=== PATIENT | male | born 1970 | race Caucasian/White ===

== ENCOUNTER 2017-01-16 12:46 | Emergency (ER) | payer OTHER ==
[2017-01-16] MEDS ORDERED: KETOROLAC 30 MG/ML VIAL IM ONE (13:16)
[2017-01-16] MEDS ORDERED: 0.9 % SODIUM CHLORIDE 1,000 ML BAG IV ONE (13:19)
[2017-01-16] MEDS ORDERED: KETOROLAC 30 MG/ML VIAL IVP ONE (13:20)
--- NOTE | 2017-01-16 13:22 | Emergency Department Record ---
History of Present Illness - General Chief Complaint: Headache Migraine Stated Complaint: SENT BY HIS DR/ PAIN AND PRESSURE IN HEAD. Time Seen by Provider: 01/16/17 13:07 Source: Patient, Family Mode of Arrival: Ambulatory Limitations: No limitations - History of Present Illness Initial Comments: The patient is here due to a L sided GALO since 1am today. The patient states he was in bed when he developed the acute onset of L sided pain behind his L eye. After the onset it did gradually worsen. He denies any visual changes, vomiting , neck pain or balance issues but did have some nausea when he was at his PCP's office. 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 Presently the GAOL is moderate and the patient states he did have a similar GALO last week that lasted 3 hours. There has been no reported fever, chills, cough, nasal congestion or vomiting. MD Complaint: Headache Onset/Timin -: Days(s) Onset Description: Gradual Location: Left Severity: Moderate Severity scale (1-10): 5 Quality: Aching Consistency: Constant Improves With: Nothing Worsens With: None Treatments Prior to Arrival: Antiemetic Treatment Prior to Arrival Comment:: phenergan at dr office - Related Data Home Medications Medication Instructions Recorded Confirmed Last Taken Sulfasalazine [Azulfidine] 500 mg PO TID 01/16/17 01/16/17 Unknown Tadalafil [Cialis] 20 mg PO ASDIR 01/16/17 01/16/17 Unknown Allergies Allergy/AdvReac Type Severity Reaction Status Date / Time No Known Drug Allergies Allergy Verified 01/16/17 13:03 Travel Screening - Travel/Exposure Within Last 30 Days Have you traveled within the last 30 days?: Yes Location Detail:: [place] - Travel/Exposure Within Last Year Have you traveled outside the [place] in the last year?: Yes [facility] Travel Symptoms Symptom Screening: Headache Review of Systems Constitutional: Denies: Chills, Fever, Malaise Eyes: Denies: Eye discharge ENT: Denies: Congestion Respiratory: Denies: Cough, Dyspnea Cardiovascular: Denies: Arrhythmia, Chest pain Past Medical History - SOCIAL HISTORY Smoking Status: Never smoker Alcohol Use: Occassional Drug Use: None - RESPIRATORY Hx Respiratory Disorders: No - CARDIOVASCULAR Hx Cardio Disorders: Yes Hx Abnormal EKG: Yes - NEURO Hx Neuro Disorders: No - GI Hx GI Disorders: No - Hx Genitourinary Disorders: No - ENDOCRINE Hx Endocrine Disorders: No - MUSCULOSKELETAL Hx Musculoskeletal Disorders: Yes Hx Arthritis: Yes - PSYCH Hx Psych Problems: No - HEMATOLOGY/ONCOLOGY Hx Hematology/Oncology Disorders: No Family Medical History Any Significant Family History?: No Physical Exam - General General Appearance: Alert, Oriented x3, Cooperative, No acute distress - Head Head exam: Atraumatic, Normocephalic, Normal inspection Head exam detail: Tenderness of temporal artery (on the L.) - Eye Eye exam: Normal appearance, PERRL, EOMI, Other (Neg Papilledema bilaterally.) - ENT ENT exam: Normal exam, Mucous membranes moist, Normal external ear exam, Normal orophraynx, TM's normal bilaterally Throat exam: Normal inspection. negative: Tonsillar erythema, Tonsillar exudate - Neck Neck exam: Normal inspection, Full ROM. negative: Lymphadenopathy, Meningismus (The neck is very supple.), Tenderness - Respiratory Respiratory exam: Normal lung sounds bilaterally. negative: Respiratory distress - Cardiovascular Cardiovascular Exam: Regular rate, Normal rhythm, Normal heart sounds - GI/Abdominal GI/Abdominal exam: Soft, Normal bowel sounds. negative: Tenderness - Extremities Extremities exam: Normal inspection, Full ROM, Normal capillary refill. negative: Tenderness - Neurological Neurological exam: Alert, Normal gait, Oriented X3. negative: Abnormal gait, Altered, Motor sensory deficit - Psychiatric Psychiatric exam: negative: Anxious, Depressed, Flat affect Course Vital Signs 01/16/17 12:54 Temperature 97.7 F Pulse Rate 59 L Respiratory 18 Rate Blood Pressure 104/61 Pulse Ox 97 - Reevaluation(s) Reevaluation #1: I did discuss the case with Dr. Muñoz who is the Neurosurgeon salesperson fashion accessories at [facility]. Due to the description of the cyst he would like the patient transferred to the ER at [facility] for an emergent MRI and neurosurgical consultation. The patient does agree to the plan. I then did discuss the case with Dr. Baez in the ER and she does accept the patient in an ER to ER transfer. 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 Forms: Patient Portal Access Time of Disposition: 15:01
[2017-01-16 13:30] LABS: EOS % 0.5 % (0-6); GRAN % 73.3 % (47-80); HEMATOCRIT 44.4 % (42.0-52.0); HEMOGLOBIN 14.9 gm/dl (14.0-18.0); LYMPH % 16.7 % (16-45); MEAN CELL VOLUME 95.9 fl (81-97); MEAN CORPUSCULAR HEMOGLOBIN 32.2 pg (27-33); MEAN CORPUSCULAR HGB CONC 33.6 g/dl (32-36); MEAN PLATELET VOLUME 9.2 fl (7.4-10.4); MONO % 9.5 % (0-9); PLATELET COUNT 265 K/uL (130-400); RED BLOOD COUNT 4.63 M/uL (4.40-5.70); RED CELL DISTRIBUTION WIDTH 13.3 % (11.5-14.5); WHITE BLOOD COUNT W/O DIFF 6.5 K/uL (4.2-12.2)
[2017-01-16 13:48] LABS: ALB/GLOB RATIO 1.7 (1.1-1.8); ALBUMIN 4.8 gm/dL (3.5-5.0); ALKALINE PHOSPHATASE 54 U/L (38-126); ALT/SGPT 40 U/L (21-72); ANION GAP 10.2 (7-16); AST/SGOT 28 U/L (17-59); BLOOD UREA NITROGEN 13 mg/dL (9-20); CARBON DIOXIDE 24.8 mmol/L (22-30); CREATININE 0.9 mg/dL (0.66-1.25); EST GLOMERULAR FILTRATION RATE > 60 ml/min; GLUCOSE,RANDOM 101 mg/dL (70-110); TOTAL PROTEIN 7.7 gm/dL (6.3-8.2)
[2017-01-16 13:51] LABS: C-REACTIVE PROTEIN < 0.5 mg/dL (0.0-0.9)
[2017-01-16 14:09] LABS: ERYTHROCYTE SEDIMENTATION RATE 2 mm/hr (0-15)
== END 2017-01-16 15:24 | disposition short-term general hospital (02) ==
LOC: ER 12:46
DX: R51 Headache (principal); R11.0 Nausea; H57.12 Ocular pain, left eye
CPT/HCPCS: 99285 ×2; 96374; 85025; 85651; 86140; 80053; 70450; J1885; J7030

== ENCOUNTER 2019-06-18 17:42 | Emergency (ER) | payer OTHER ==
[2019-06-18] MEDS ORDERED: 0.9 % SODIUM CHLORIDE 1,000 ML BAG IV ONE (18:07)
[2019-06-18] MEDS ORDERED: ACETAMINOPHEN 1,000 MG/100 ML BTL IVPB ONE (18:08)
--- NOTE | 2019-06-18 18:13 | Emergency Department Record ---
History of Present Illness - General Chief Complaint: Abdominal Pain Stated Complaint: ABD PAIN/FEVER Time Seen by Provider: 06/18/19 18:01 Source: Patient Mode of Arrival: Ambulatory Limitations: No limitations - History of Present Illness Initial Comments: The patient is here due to RUQ pain for one day. The pain is fairly constant and nonradiating and associated with nausea but no vomiting. The patient states food does not affect the pain. There has been no diarrhea, fever, chills, or vomiting. The patient has not had any abdominal surgeries. MD Complaint: Abdominal pain Onset/Timin -: Days(s) Location: RUQ Radiation: None Migration to: No migration Severity: Moderate Severity scale (1-10): 8 Quality: Sharp Consistency: Constant Improves With: Nothing Worsens With: Nothing Associated Symptoms: Nausea - Related Data Home Medications Medication Instructions Recorded Confirmed Last Taken Sertraline HCl [Zoloft] 50 mg PO DAILY 06/18/19 06/18/19 Unknown Allergies Allergy/AdvReac Type Severity Reaction Status Date / Time No Known Drug Allergies Allergy Verified 06/18/19 17:52 Travel Screening - Travel/Exposure Within Last 30 Days Have you traveled within the last 30 days?: No Review of Systems Constitutional: Denies: Chills, Fever Eyes: Denies: Eye discharge ENT: Denies: Congestion Respiratory: Denies: Cough Cardiovascular: Denies: Arrhythmia, Chest pain Endocrine: Reports: Fatigue Gastrointestinal: Reports: Abdominal pain, Nausea. Denies: Diarrhea Genitourinary: Denies: Dysuria Musculoskeletal: Denies: Arthralgia Skin: Denies: Bruising Past Medical History - SOCIAL HISTORY Smoking Status: Never smoker Alcohol Use: None Drug Use: None - RESPIRATORY Hx Respiratory Disorders: No - CARDIOVASCULAR Hx Cardio Disorders: Yes Hx Abnormal EKG: Yes - NEURO Hx Neuro Disorders: No - GI Hx GI Disorders: No - Hx Genitourinary Disorders: No - ENDOCRINE Hx Endocrine Disorders: No - MUSCULOSKELETAL Hx Musculoskeletal Disorders: Yes Hx Arthritis: Yes - PSYCH Hx Psych Problems: Yes Hx Depression: Yes - HEMATOLOGY/ONCOLOGY Hx Hematology/Oncology Disorders: No Family Medical History Any Significant Family History?: No Physical Exam - General General Appearance: Alert, Oriented x3, Cooperative, No acute distress - Head Head exam: Atraumatic, Normocephalic - Eye Eye exam: Normal appearance - Neck Neck exam: Normal inspection, Full ROM. negative: Tenderness - Respiratory Respiratory exam: Normal lung sounds bilaterally. negative: Respiratory distress - Cardiovascular Cardiovascular Exam: Regular rate, Normal rhythm, Normal heart sounds - GI/Abdominal GI/Abdominal exam: Soft, Normal bowel sounds, Tenderness (There is significant tenderness to palpation over the right mid abdomen.). negative: Guarding, Pulsatile mass, Rebound, Rigid - Extremities Extremities exam: Normal inspection, Full ROM, Normal capillary refill. negative: Tenderness - Back Back exam: Reports: Normal inspection - Neurological Neurological exam: Alert, Normal gait. negative: Abnormal gait, Motor sensory deficit - Psychiatric Psychiatric exam: negative: Anxious Course Vital Signs 06/18/19 17:49 Temperature 99.2 F Pulse Rate 97 H Respiratory 18 Rate Blood Pressure 132/71 Pulse Ox 97 - Reevaluation(s) Reevaluation #1: The patient's CT clearly demonstrates acute appendicitis with no perforation or abscess. I did discuss the issues with the patient and he stated he would like to be transferred to [facility]. I then did discuss the case with Dr. Parsons(gen surg) at [facility] who did accept the patient and would like him to go to the ER. I then did discuss the case with Dr. Mccray in the ER who did accept the patient in transfer to the ER. 06/18/19 19:01 Medical Decision Making - Data Complexity MDM Data: Labs Ordered and/or Reviewed, X-Ray Ordered and/or Reviewed - Lab Data Result diagrams: 06/18/19 18:10 06/18/19 18:10 - Radiology Data Radiology results: Report reviewed (CT: Acute appencitis with no perforation or abscess.) Disposition Disposition: Transfer Clinical Impression: Acute appendicitis Qualifiers: Acute appendicitis type: unspecified acute appendicitis type Qualified Code(s): K35.80 - Unspecified acute appendicitis Disposition: Acute Care Hospital Transfer Transfer To: [facility] Reason For Transfer: Gen Surg. Accepting Physician: Issa Time Discussed w/Accepting Physician: 19:04 Condition: (2) Stable Instructions: Abdominal Pain (ED) Additional Instructions: Please proceed directly to the ER at [facility] for admission. Forms: Patient Portal Access Time of Disposition: 19:04 Quality - Quality Measures Quality Measures: N/A - Blood Pressure Screening View Details: Yes Does Patient Have Any of the Following: No Blood Pressure Classification: Pre-Hypertensive BP Reading Systolic Measurement: 132 Diastolic Measurement: 71 Screening for High Blood Pressure: < Pre-Hypertensive BP, F/U Documented > [G8950] Pre-Hypertensive Follow-up Interventions: Referral to alternative/primary care provider.
[2019-06-18 18:33] LABS: BLOOD UREA NITROGEN 11 mg/dL (6-20); CREATININE 0.9 mg/dL (0.7-1.2); EST GLOMERULAR FILTRATION RATE > 60 mL/min
[2019-06-18 18:34] LABS: LIPASE 31 U/L (13-60); TOTAL PROTEIN 7.4 g/dL (6.6-8.7)
[2019-06-18 18:36] LABS: GLUCOSE,RANDOM 110 mg/dL (74-109)
[2019-06-18 18:38] LABS: ALBUMIN 4.5 g/dL (4.0-5.0); ALT/SGPT 29 U/L (<41); AST/SGOT 18 U/L (10.0-50.0)
[2019-06-18 18:39] LABS: ALKALINE PHOSPHATASE 58 U/L (40-129); BILIRUBIN,DIRECT < 0.2 mg/dL (0-0.3)
[2019-06-18] MEDS ORDERED: ERTAPENEM SODIUM 1 G in 0.9 % SODIUM CHLORIDE 100ML 100 ML IVPB ONE (18:48)
--- NOTE | 2019-06-20 21:38 | CT SCAN REPORT ---
EXAM: CT SCAN ABDOMEN/PELVIS WO CONTRAST HISTORY: RIGHT LOWER QUADRANT ABDOMEN PAIN. COMPARISON: None. TECHNIQUE: Without administration of intravenous contrast, contiguous CT sections were obtained through the abdomen and pelvis in the axial plane. Coronal and sagittal reformats. FINDINGS: Curvilinear opacities are noted about the lung bases bilaterally, likely areas of scarring or atelectasis. No free air evident within the abdomen or pelvis. Noncontrast technique limits evaluation of the solid organs. Chronic- appearing changes suggested at the spleen with capsular calcifications and a few splenules adjacent to the spleen. 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 No renal, ureteral, or bladder stones evident. No hydronephrosis. Visualized portions of the solid organs otherwise appear unremarkable as seen. The gallbladder is present. No pericholecystic fluid. No abdominal aortic aneurysm. Evaluation of the vasculature otherwise limited. The appendix is abnormal measuring up to 12 mm. It is surrounded by inflammatory change. No discrete organized fluid collection to suggest abscess at this time. GI tract is otherwise nondilated. No mesenteric adenopathy evident. Abdominal wall is grossly intact. Old rib fractures of the posterior left rib cage noted. There is mild spurring of the spine. IMPRESSION: 1. ACUTE APPENDICITIS. SURGICAL CONSULTATION RECOMMENDED. 2. ADDITIONAL CHRONIC-APPEARING FINDINGS, DISCUSSED ABOVE. The ER physician was notified by voice clip. JOB NUMBER: [id number] MTDD
== END 2019-06-18 19:32 | disposition short-term general hospital (02) ==
LOC: ER 17:42
DX: K35.80 Unspecified acute appendicitis (principal); R11.0 Nausea
CPT/HCPCS: 74176; 80048; 80076; 83690; 85025; 96365; 96366; 96368; 99285; J7030